=== PATIENT | female | born 1955 | race Caucasian/White ===

== ENCOUNTER 2018-10-10 11:39 | Day surgery (SDC) | payer BC ==
[~2018-10-10 11:39] MED LIST: Buffered Lidocaine 1% SYRIN* 1 ML/SYRINGE INTRADERM ONE; Lactated Ringers 1000 ML Bag* 1,000 ML IV SCH
[2018-10-10] MEDS ORDERED: Famotidine IV* 10 MG/ML 2 ML (20 mg) ONE (12:21)
[2018-10-10] MEDS ORDERED: Ondansetron INJ* 2 MG/ML VIAL IV PRN (12:37)
[2018-10-10] MEDS ORDERED: DiMENhydriNATE IV* 50 MG/ML VIAL IV PUSH PRN (12:37)
[2018-10-10] MEDS ORDERED: fentaNYL* 50 MCG/ML 2 ML VIAL (100 MCG VIAL) IV PRN (12:37)
[2018-10-10] MEDS ORDERED: Acetaminophen TAB* 325 MG PO PRN (12:37)
[2018-10-10] MEDS ORDERED: diPHENhydraMINE IV* 50 MG/ML 1 ml VIAL (BENADRYL) IV PRN (12:37)
[2018-10-10] MEDS ORDERED: Levalbuterol 0.63MG/3ML NEB* UNIT OF USE INH PRN (12:37)
[2018-10-10] MEDS ORDERED: PROCHLORPERAZINE INJ 5 MG/ML 2 ML VIAL IV PRN (12:37)
[2018-10-10] MEDS ORDERED: Naloxone* 0.4 MG/ML 1 ML VIAL IV PRN (12:37)
[2018-10-10] MEDS ORDERED: Propofol* 10 MG/ML 20 ML BTL ONE ×3 (13:11→13:54)
[2018-10-10] MEDS ORDERED: fentaNYL* 50 MCG/ML 2 ML VIAL (100 MCG VIAL) ONE (13:11)
[2018-10-10] MEDS ORDERED: Dexamethasone IV* 4 MG/ML 1 ML (4 MG) ONE (13:11)
[2018-10-10] MEDS ORDERED: Midazolam* 1 MG/ML 2 ML VIAL (2 MG) ONE (13:11)
[2018-10-10] MEDS ORDERED: Lidocaine 2% PF * 5 ML VIAL ONE (13:11)
[2018-10-10] MEDS ORDERED: KETAMINE HCL* 50 MG/ML 10 ML VIAL ONE (13:56)
[2018-10-10] MEDS ORDERED: OXYTOCIN* 10 UNITS/ML 1 ML VIAL ONE (13:59)
[2018-10-10 15:00] VITALS: BP 135/80
--- NOTE | 2018-10-10 21:29 | PRO ---
CC: Dr. Quintana * DATE OF PROCEDURE: 10/10/18 [facility] PROCEDURE: Colonoscopy. INDICATION: History of adenomatous polyps in the past. REFERRING PHYSICIAN: Dr. Quintana. MEDICATIONS GIVEN: Anesthesia. DESCRIPTION OF PROCEDURE: After the colonoscopy procedure, including the risks , benefits and alternatives, not limited to perforation, surgery, and/or were explained to Ms. Mcdaniels, written consent was then obtained. IV medication was given, and a rectal exam was performed. IV sedation was provided by anesthesia services. An Olympus pediatric colonoscope was then inserted into the patient's rectum and advanced very carefully through the entirety of the colon and into the cecal base. Careful and thorough inspection within the cecal base did not reveal any abnormalities. The quality of the preparation was fair. The scope was then withdrawn in a very careful manner over the next 10 minutes through the remainder of the colon. Three colorectal polyps were seen; two at 55 cm from the anal verge, one removed with jumbo biopsy forceps, the other removed with snare polypectomy; and then one at 15 cm from the anal verge, removed with snare cautery polypectomy. Adequate hemostasis was achieved with each and specimens were retrieved. In the rectum, a retroflexion maneuver was performed; it was unremarkable. The scope was withdrawn from the patient. She tolerated the procedure well, was returned to recovery room in stable condition. IMPRESSION: 1. Complete colonoscopy into the cecum with snare polypectomy and biopsy polypectomy. 2. Three colorectal polyps, status post snare cautery polypectomy of rectal polyp, status post cold snare polypectomy and biopsy polypectomy of transverse colon polyps. 3. I will follow up on the polyps. She should have a repeat colonoscopy in 5 years from now. [id number]/[facility] #: [id number] [facility]
== END 2018-10-10 15:37 | disposition home or self-care (01) ==
LOC: OR 11:39
PROVIDERS: ATTEND Internal Medicine Gastroenterology
DX: Z09 Encounter for follow-up examination after completed treatment for conditions other than malignant neoplasm (principal); Z86.010 Personal history of colon polyps; D12.7 Benign neoplasm of rectosigmoid junction; D12.3 Benign neoplasm of transverse colon; J44.9 Chronic obstructive pulmonary disease, unspecified; R01.1 Cardiac murmur, unspecified; Z85.3 Personal history of malignant neoplasm of breast
CPT/HCPCS: 88305; J1100; J2250; J2590; J2704; J3010

== ENCOUNTER 2020-11-19 17:57 | Observation (INO) ==
[2020-11-19] MEDS ORDERED: methylPREDNISolone 125 mg 2 ML VIAL IV ONE (18:53)
[2020-11-19] MEDS ORDERED: Albuterol/Ipratropium NEB.SOL (2.5/0.5 MG) 3 ML NEB.SOLN INH ONE (18:53)
[2020-11-19 19:48] LABS: ABS Lymphocytes 0.7 10^3/ul (1.0-4.8); ABS Monocytes 1.2 10^3/ul (0-0.8); ABS Neutrophils 15.5 10^3/ul (1.5-7.7); Eosinophil % 0.1 %; Hematocrit 44 % (35-47); Mean Corpuscular HGB Conc 34 g/dL (31-36); Mean Corpuscular Hemoglobin 31 pg (27-31); Mean Corpuscular Volume 91 fL (80-97); Platelet Count 265 10^3/uL (150-450); Red Blood Count 4.87 10^6 /uL (3.70-4.87); Red Cell Distribution Width 14 % (10-15); White Blood Count 17.5 10^3/uL (3.5-10.8)
[2020-11-19 20:07] LABS: Albumin 4.1 g/dL (3.2-5.2); Albumin/Globulin Ratio 1.4 (1-3); Calcium 9.2 mg/dL (8.6-10.3); EGFR African American 95.3 (>60); EGFR Non-African American 78.8 (>60); Globulin 2.9 g/dL (2-4); Potassium 4.2 mmol/L (3.5-5.0); Total Bilirubin 0.6 mg/dL (0.2-1.0)
[2020-11-19] MEDS ORDERED: Ondansetron 4 mg VIAL 2 MG/ML 2 ml VIAL IV ONE (20:55)
[2020-11-19] MEDS ORDERED: cefTRIAXone 1 GM/50 ML PREMIX.BAG IV ONE (23:00)
[2020-11-19] MEDS ORDERED: Enoxaparin 40 MG/0.4 ML SYR SUBCUT SCH (23:00)
[2020-11-19] MEDS ORDERED: Azithromycin 500 mg/250 ml NS 500 MG/250 ML BAG IVPB SCH (23:00)
[2020-11-19 23:31] LABS: C Reactive Protein 136.73 mg/L (<8.01)
[2020-11-20] MEDS: cefTRIAXone 1 gm/50 mL NS BAG 1 GM/50 ML BAG IVPB SCH (01:49)
[2020-11-20] MEDS: Albuterol/Ipratropium NEB.SOL (2.5/0.5 MG) 3 ML NEB.SOLN INH SCH ×4 (02:03→19:08)
[2020-11-20 08:32] LABS: ABS Lymphocytes 0.4 10^3/ul (1.0-4.8); ABS Monocytes 0.3 10^3/ul (0-0.8); ABS Neutrophils 15.3 10^3/ul (1.5-7.7); Hematocrit 43 % (35-47); Hemoglobin 14.4 g/dL (12.0-16.0); Lymphocyte % 2.7 %; Mean Corpuscular HGB Conc 34 g/dL (31-36); Mean Corpuscular Hemoglobin 31 pg (27-31); Mean Corpuscular Volume 91 fL (80-97); Mean Platelet Volume 8.4 fL (7.4-10.4); Nucleated Red Blood Cells % 0.1; Platelet Count 262 10^3/uL (150-450); Red Blood Count 4.68 10^6 /uL (3.70-4.87); Red Cell Distribution Width 14 % (10-15)
[2020-11-20 08:45] LABS: Calcium 9.4 mg/dL (8.6-10.3); EGFR African American 92.4 (>60); EGFR Non-African American 76.4 (>60); Potassium 4.2 mmol/L (3.5-5.0)
[2020-11-20] MEDS ORDERED: NON FORMULARY MED (Tiotropium Bromide [Spiriva With Handihaler] 18 mcg capsule, w/inhalati INH SCH (09:00)
[2020-11-20] MEDS: Albuterol HFA INHALER 8 gm MDI INH PRN ×2 (12:22→18:32)
[2020-11-20] MEDS: Nicotine PATCH 21 MG/24 HR PATCH TRANSDERM SCH (12:24)
[2020-11-20 12:46] LABS: Urine Appearance Clear; Urine Bilirubin Negative (Negative); Urine Blood 1+ (Negative); Urine Color Yellow; Urine Glucose 3+(>=500 mg/dL) (Negative); Urine Ketones 1+ (Negative); Urine Nitrite Positive (Negative); Urine Protein 1+(30 mg/dL) (Negative); Urine Specific Gravity 1.024 (1.002-1.030); Urine Urobilinogen Positive (Negative)
[2020-11-20 13:11] LABS: Urine Bacteria 1+ (Absent); Urine Red Blood Cell Trace(0-2/hpf) (Absent); Urine Squamous Epithelial Cell Present (Absent); Urine White Blood Cell Trace(0-5/hpf) (Absent)
[2020-11-20] MEDS ORDERED: Enoxaparin 40 MG/0.4 ML SYR SUBCUT SCH (21:00)
[2020-11-20] MEDS ORDERED: AZITHROMYCIN 500 MG TAB PO SCH (21:00)
[2020-11-21] MEDS: Albuterol/Ipratropium NEB.SOL (2.5/0.5 MG) 3 ML NEB.SOLN INH SCH ×3 (01:06→07:09)
[2020-11-21] MEDS: cefTRIAXone 1 gm/50 mL NS BAG 1 GM/50 ML BAG IVPB SCH (01:38)
[2020-11-21 05:23] LABS: Hematocrit 37 % (35-47); Hemoglobin 12.5 g/dL (12.0-16.0); Mean Corpuscular HGB Conc 34 g/dL (31-36); Mean Corpuscular Hemoglobin 31 pg (27-31); Mean Corpuscular Volume 90 fL (80-97); Mean Platelet Volume 8.7 fL (7.4-10.4); Platelet Count 254 10^3/uL (150-450); Red Blood Count 4.09 10^6 /uL (3.70-4.87); Red Cell Distribution Width 14 % (10-15)
[2020-11-21 05:32] LABS: Calcium 8.9 mg/dL (8.6-10.3); EGFR African American 123.8 (>60); EGFR Non-African American 102.3 (>60)
[2020-11-21] MEDS: Nicotine PATCH 21 MG/24 HR PATCH TRANSDERM SCH (08:04)
[2020-11-21] MEDS ORDERED: Pneumococcal Vac 23-Polyvalent IM ONE (09:00)
[2020-11-21 11:52] VITALS: BP 136/73
[2020-11-21] MEDS: Albuterol HFA INHALER 8 gm MDI INH PRN (12:14)
== END 2020-11-21 12:25 | disposition home or self-care (01) ==
LOC: ED 17:57 → MED 17:57
PROVIDERS: ADMIT Internal Medicine; ATTEND Hospitalist

== ENCOUNTER 2021-10-12 16:00 | Observation (INO) ==
[2021-10-12 16:41] LABS: ABS Basophils 0.1 10^3/ul (0-0.2); ABS Eosinophils 0.1 10^3/ul (0-0.6); ABS Lymphocytes 1.2 10^3/ul (1.0-4.8); ABS Monocytes 0.8 10^3/ul (0-0.8); ABS Neutrophils 5.9 10^3/ul (1.5-7.7); Eosinophil % 0.7 %; Hematocrit 44 % (35-47); Hemoglobin 14.8 g/dL (12.0-16.0); Lymphocyte % 15.1 %; Mean Corpuscular HGB Conc 33 g/dL (31-36); Mean Corpuscular Hemoglobin 30 pg (27-31); Mean Corpuscular Volume 88 fL (80-97); Mean Platelet Volume 7.9 fL (7.4-10.4); Nucleated Red Blood Cells % 0.2; Platelet Count 287 10^3/uL (150-450); Red Blood Count 5.03 10^6 /uL (3.70-4.87); Red Cell Distribution Width 14 % (10-15)
[2021-10-12] MEDS ORDERED: Albuterol/Ipratropium NEB.SOL (2.5/0.5 MG) 3 ML NEB.SOLN INH ONE (17:03)
[2021-10-12 17:07] LABS: High Sens Troponin Baseline 6 pg/mL (<15)
[2021-10-12 17:21] LABS: ALT 16 U/L (7-52); Albumin 3.6 g/dL (3.2-5.2); Albumin/Globulin Ratio 1.3 (1-3); Alkaline Phosphatase 56 U/L (35-149); Blood Urea Nitrogen 23 mg/dL (6-24); CO2 Carbon Dioxide 30 mmol/L (22-32); Chloride 102 mmol/L (101-111); Globulin 2.7 g/dL (2-4); Glucose 93 mg/dL (70-100); Lipase 21 U/L (11.0-82.0); Sodium 137 mmol/L (135-145); Total Protein 6.3 g/dL (6.4-8.9); eGFR CKD-EPI 109.8 (>60)
[2021-10-12 17:25] LABS: Anion Gap 5 mmol/L (2-11)
[2021-10-12] MEDS ORDERED: Iohexol 350 (CONTRAST) 500 ML MDV IV ONE (17:33)
[2021-10-12] MEDS ORDERED: NS 0.9% 1000 ml BAG 1,000 ML IV ONE (17:52)
[2021-10-12 18:14] LABS: High Sensitivity Troponin 1 Hr 7 pg/mL (<15)
[2021-10-12] MEDS ORDERED: Morphine ORAL CONCENTRATE 5 MG/0.25 ML ORAL.SYRIN PO ONE (18:44)
[2021-10-12 19:12] LABS: Magnesium 1.8 mg/dL (1.9-2.7); Potassium Redraw 4.9 mmol/L (3.5-5.0)
[2021-10-12 19:17] LABS: Urine Appearance Cloudy; Urine Bilirubin Negative (Negative); Urine Blood Negative (Negative); Urine Color Yellow; Urine Glucose Negative (Negative); Urine Ketones Trace (Negative); Urine Nitrite Positive (Negative); Urine Protein Negative (Negative); Urine Specific Gravity 1.031 (1.002-1.030); Urine Urobilinogen Negative (Negative)
[2021-10-12 19:22] LABS: Urine Bacteria Absent (Absent); Urine Red Blood Cell 3+(>10/hpf) (Absent); Urine Squamous Epithelial Cell Present (Absent); Urine White Blood Cell Trace(0-5/hpf) (Absent)
[2021-10-12] MEDS: methylPREDNISolone SOD SUCC 40 mg/ml 1 ml VIAL IV SCH (20:06)
[2021-10-12] MEDS: Enoxaparin 40 MG/0.4 ML SYR SUBCUT SCH (20:06)
[2021-10-12 20:40] LABS: PCO2 Arterial 43 mmHg (35-45); PO2 Arterial 62 mmHg (80-100)
[2021-10-12] MEDS: Azithromycin 500 mg/250 ml NS 500 MG/250 ML BAG IVPB SCH (21:24)
[2021-10-12] MEDS: Albuterol/Ipratropium NEB.SOL (2.5/0.5 MG) 3 ML NEB.SOLN INH SCH (21:33)
[2021-10-12] MEDS: Acetylcysteine INHALATION SOL 200 MG/ML NEB.SOLN 10 ML INH SCH (21:34)
[2021-10-12] MEDS: Mometasone/Formoter 200/5 MDI INH SCH (21:35)
[2021-10-12] MEDS ORDERED: Morphine ORAL.SOLN 10 mg 2 mg/ml UDC 5 ml (10 mg) PO ONE (23:07)
[2021-10-12] MEDS ORDERED: Magnesium Sulfate 2 gm BAG 2 GM/50 ML BAG IVPB ONE (23:09)
[2021-10-13] MEDS: Albuterol/Ipratropium NEB.SOL (2.5/0.5 MG) 3 ML NEB.SOLN INH SCH ×5 (00:20→19:27)
[2021-10-13] MEDS: Acetylcysteine INHALATION SOL 200 MG/ML NEB.SOLN 10 ML INH SCH ×6 (00:21→19:26)
[2021-10-13] MEDS ORDERED: Morphine ORAL CONCENTRATE 5 MG/0.25 ML ORAL.SYRIN PO ONE (03:55)
[2021-10-13] MEDS ORDERED: Senna TAB 8.6 mg TAB PO PRN (03:58)
[2021-10-13] MEDS ORDERED: Polyethylene Glycol 3350 17 GM PACKET PO PRN (03:58)
[2021-10-13] MEDS: Albuterol HFA INHALER 8 gm MDI INH PRN (03:59)
[2021-10-13] MEDS: methylPREDNISolone SOD SUCC 40 mg/ml 1 ml VIAL IV SCH ×3 (04:41→20:44)
[2021-10-13 05:13] LABS: Hematocrit 38 % (35-47); Hemoglobin 12.6 g/dL (12.0-16.0); Mean Corpuscular HGB Conc 33 g/dL (31-36); Mean Corpuscular Hemoglobin 29 pg (27-31); Mean Corpuscular Volume 89 fL (80-97); Mean Platelet Volume 8.2 fL (7.4-10.4); Platelet Count 296 10^3/uL (150-450); Red Cell Distribution Width 14 % (10-15); White Blood Count 12.3 10^3/uL (3.5-10.8)
[2021-10-13 05:41] LABS: Calcium 8.6 mg/dL (8.6-10.3); Potassium 4.6 mmol/L (3.5-5.0); eGFR CKD-EPI 97.8 (>60)
[2021-10-13 06:21] LABS: ABS Lymphocytes 0.5 10^3/ul (1.0-4.8); ABS Monocytes 0.3 10^3/ul (0-0.8); ABS Neutrophils 11.5 10^3/ul (1.5-7.7); Eosinophil % 0.1 %; Lymphocyte % 3.8 %
[2021-10-13] MEDS: Mometasone/Formoter 200/5 MDI INH SCH ×2 (07:50→19:28)
[2021-10-13] MEDS: Morphine ORAL CONCENTRATE 5 MG/0.25 ML ORAL.SYRIN PO PRN ×3 (11:29→20:55)
[2021-10-13 11:44] LABS: Vitamin D Total 25(OH) 14.8 ng/mL (20-50)
[2021-10-13] MEDS ORDERED: NS 0.9% 1000 ml BAG 1,000 ML IV ONE (14:12)
[2021-10-13] MEDS: Cholecalciferol (VIT D3) 1,000 unit TAB PO SCH (15:27)
[2021-10-13] MEDS: Enoxaparin 40 MG/0.4 ML SYR SUBCUT SCH (20:44)
[2021-10-13] MEDS: Azithromycin 500 mg/250 ml NS 500 MG/250 ML BAG IVPB SCH (20:44)
[2021-10-14] MEDS: Acetylcysteine INHALATION SOL 200 MG/ML NEB.SOLN 10 ML INH SCH ×3 (00:06→07:47)
[2021-10-14] MEDS: Albuterol HFA INHALER 8 gm MDI INH PRN ×2 (00:06→04:04)
[2021-10-14] MEDS: Morphine ORAL CONCENTRATE 5 MG/0.25 ML ORAL.SYRIN PO PRN (01:14)
[2021-10-14] MEDS: methylPREDNISolone SOD SUCC 40 mg/ml 1 ml VIAL IV SCH (04:09)
[2021-10-14] MEDS: Mometasone/Formoter 200/5 MDI INH SCH (07:47)
[2021-10-14] MEDS: Albuterol/Ipratropium NEB.SOL (2.5/0.5 MG) 3 ML NEB.SOLN INH SCH ×2 (07:47→12:44)
[2021-10-14] MEDS: Cholecalciferol (VIT D3) 1,000 unit TAB PO SCH (07:57)
[2021-10-14 11:15] VITALS: BP 140/72
== END 2021-10-14 13:20 | disposition home or self-care (01) ==
LOC: EDHOLD 16:00 → ED 16:00 → SUATTDRO 18:59 → MED 20:01
PROVIDERS: ADMIT Internal Medicine; ATTEND Internal Medicine

== ENCOUNTER 2022-01-16 18:42 | Inpatient (IN) ==
[2022-01-16] MEDS ORDERED: Morphine 4 MG/ML VIAL (1 ml) IV ONE (19:05)
[2022-01-16 20:20] LABS: ABS Lymphocytes 0.4 10^3/ul (1.0-4.8); ABS Monocytes 0.4 10^3/ul (0-0.8); ABS Neutrophils 13.5 10^3/ul (1.5-7.7); Eosinophil % 0.2 %; Hematocrit 44 % (35-47); Hemoglobin 14.2 g/dL (12.0-16.0); Lymphocyte % 2.6 %; Mean Corpuscular HGB Conc 32 g/dL (31-36); Mean Corpuscular Hemoglobin 29 pg (27-31); Mean Corpuscular Volume 91 fL (80-97); Mean Platelet Volume 8.7 fL (7.4-10.4); Platelet Count 227 10^3/uL (150-450); Red Blood Count 4.83 10^6 /uL (3.70-4.87); Red Cell Distribution Width 14 % (10-15); White Blood Count 14.3 10^3/uL (3.5-10.8)
[2022-01-16 20:33] LABS: Activated Partial Thrombo Time 31.1 seconds (26.0-38.0); INR 0.94 (0.89-1.11)
[2022-01-16] MEDS: Morphine 4 MG/ML VIAL (1 ml) IV PRN ×2 (20:38→21:48)
[2022-01-16 21:27] LABS: Albumin 3.9 g/dL (3.2-5.2); Albumin/Globulin Ratio 1.7 (1-3); Calcium 9.4 mg/dL (8.6-10.3); Globulin 2.3 g/dL (2-4); Potassium 4.6 mmol/L (3.5-5.0); Total Bilirubin 0.4 mg/dL (0.2-1.0); Total Protein 6.2 g/dL (6.4-8.9); eGFR CKD-EPI 97.8 (>60)
[2022-01-17] MEDS: Morphine 4 MG/ML VIAL (1 ml) IV PRN ×2 (02:30→04:08)
[2022-01-17] MEDS ORDERED: Ondansetron 4 mg VIAL 2 MG/ML 2 ml VIAL IV ONE (03:44)
[2022-01-17] MEDS ORDERED: Enoxaparin 40 MG/0.4 ML SYR SUBCUT SCH (06:00)
[2022-01-17] MEDS: Acetaminophen IV 1 GM/100ML 1,000 MG/100 ML BAG IV SCH ×4 (06:13→18:30)
[2022-01-17] MEDS ORDERED: Ondansetron 4 mg VIAL 2 MG/ML 2 ml VIAL IV PRN (06:42)
[2022-01-17] MEDS ORDERED: Albuterol HFA INHALER 8 gm MDI INH PRN (06:49)
[2022-01-17] MEDS: Morphine 2 MG/ML SYRINGE IV PRN ×2 (06:55→09:46)
[2022-01-17] MEDS ORDERED: NON FORMULARY MED (Budesonide-Glycopyr-Formoterol [Breztri Aerosphere] 160-9-4.8 mcg/actua INH SCH (09:00)
[2022-01-17] MEDS: Albuterol/Ipratropium NEB.SOL (2.5/0.5 MG) 3 ML NEB.SOLN INH SCH ×2 (09:45→11:57)
[2022-01-17] MEDS: Acetylcysteine ORAL SOL 200 mg/ml 30 ml VIAL INH SCH ×3 (09:49→23:20)
[2022-01-17] MEDS: FOOD SUPPLEMT LACTOSE REDUCED PO SCH ×2 (11:22→13:20)
[2022-01-17] MEDS: Cholecalciferol (VIT D3) 1,000 unit TAB PO SCH (11:22)
[2022-01-17] MEDS: SPIRIVA Respimat (tiotropium) 2.5 mcg/inh Inhaler INH SCH (11:42)
[2022-01-17] MEDS ORDERED: NS 0.9% 1000 ml BAG 1,000 ML IV SCH (13:15)
[2022-01-17] MEDS ORDERED: Iohexol 350 (CONTRAST) 500 ML MDV IV ONE (17:14)
[2022-01-17] MEDS: Mometasone/Formoter 200/5 MDI INH SCH (19:50)
[2022-01-17] MEDS ORDERED: Naloxone 0.4 mg VIAL 0.4 mg/ml 1 ml VIAL ONE ×2 (19:53→19:59)
[2022-01-17 20:27] LABS: Venous Bicarbonate HCO3 15.7 mmol/L (24-28)
[2022-01-17] MEDS ORDERED: Morphine 2 MG/ML SYRINGE IV ONE (21:07)
[2022-01-17 22:41] LABS: Blood Urea Nitrogen 21 mg/dL (6-24); CO2 Carbon Dioxide 29 mmol/L (22-32); Calcium 8.1 mg/dL (8.6-10.3); Chloride 105 mmol/L (101-111); Glucose 83 mg/dL (70-100); Sodium 135 mmol/L (135-145)
[2022-01-17 22:54] LABS: ABS Eosinophils 0.1 10^3/ul (0-0.6); ABS Lymphocytes 0.8 10^3/ul (1.0-4.8); ABS Monocytes 0.6 10^3/ul (0-0.8); ABS Neutrophils 7.2 10^3/ul (1.5-7.7); Hematocrit 37 % (35-47); Hemoglobin 12.4 g/dL (12.0-16.0); Lymphocyte % 9.5 %; Mean Corpuscular HGB Conc 34 g/dL (31-36); Mean Corpuscular Hemoglobin 31 pg (27-31); Mean Corpuscular Volume 93 fL (80-97); Mean Platelet Volume 8.9 fL (7.4-10.4); Platelet Count 173 10^3/uL (150-450); Red Blood Count 3.98 10^6 /uL (3.70-4.87); Red Cell Distribution Width 15 % (10-15); White Blood Count 8.8 10^3/uL (3.5-10.8)
[2022-01-17 22:56] LABS: Anion Gap 1 mmol/L (2-11)
[2022-01-17 23:44] LABS: Magnesium 1.7 mg/dL (1.9-2.7); Potassium Redraw 4.8 mmol/L (3.5-5.0)
[2022-01-18] MEDS ORDERED: Magnesium Sulfate IV 3 GM in NS 0.9% 100 ml BAG 100 ML IVPB ONE (00:22)
[2022-01-18] MEDS: Acetaminophen IV 1 GM/100ML 1,000 MG/100 ML BAG IV SCH ×5 (00:24→22:48)
[2022-01-18] MEDS: Morphine 2 MG/ML SYRINGE IV PRN (03:26)
[2022-01-18 03:43] LABS: Urine Appearance Clear; Urine Color Yellow
[2022-01-18 03:44] LABS: Urine Bilirubin Negative (Negative); Urine Glucose Negative (Negative); Urine Ketones Negative (Negative)
[2022-01-18 03:45] LABS: Urine Blood Negative (Negative); Urine Nitrite Negative (Negative); Urine Protein Negative (Negative); Urine Urobilinogen 0.2 (Negative) (Negative); Urine pH 5.5 (5.0-9.0)
[2022-01-18 05:22] LABS: ABS Eosinophils 0.1 10^3/ul (0-0.6); ABS Lymphocytes 1.1 10^3/ul (1.0-4.8); ABS Monocytes 0.5 10^3/ul (0-0.8); ABS Neutrophils 5.8 10^3/ul (1.5-7.7); Eosinophil % 1.5 %; Hematocrit 36 % (35-47); Hemoglobin 12.2 g/dL (12.0-16.0); Lymphocyte % 15.2 %; Mean Corpuscular HGB Conc 34 g/dL (31-36); Mean Corpuscular Hemoglobin 31 pg (27-31); Mean Corpuscular Volume 91 fL (80-97); Mean Platelet Volume 8.8 fL (7.4-10.4); Platelet Count 175 10^3/uL (150-450); Red Blood Count 3.93 10^6 /uL (3.70-4.87); Red Cell Distribution Width 14 % (10-15); White Blood Count 7.5 10^3/uL (3.5-10.8)
[2022-01-18 05:28] LABS: Venous Bicarbonate HCO3 28.1 mmol/L (24-28)
[2022-01-18 06:21] LABS: Calcium 7.7 mg/dL (8.6-10.3); Magnesium 2.5 mg/dL (1.9-2.7); Potassium 4.2 mmol/L (3.5-5.0); eGFR CKD-EPI 103.4 (>60)
[2022-01-18] MEDS ORDERED: Bupivacaine 0.5% SDV PF 30ML VIAL ONE (07:25)
[2022-01-18 08:17] LABS: PCO2 Arterial 61 mmHg (35-45); PO2 Arterial 118 mmHg (80-100)
[2022-01-18] MEDS: Mometasone/Formoter 200/5 MDI INH SCH (08:18)
[2022-01-18] MEDS: SPIRIVA Respimat (tiotropium) 2.5 mcg/inh Inhaler INH SCH (08:18)
[2022-01-18] MEDS: Cholecalciferol (VIT D3) 1,000 unit TAB PO SCH (08:54)
[2022-01-18] MEDS: Senna TAB 8.6 mg TAB PO SCH (08:55)
[2022-01-18] MEDS ORDERED: Albuterol/Ipratropium NEB.SOL (2.5/0.5 MG) 3 ML NEB.SOLN INH PRN (10:08)
[2022-01-18] MEDS: Acetylcysteine ORAL SOL 200 mg/ml 30 ml VIAL INH SCH ×2 (10:28→17:15)
[2022-01-18] MEDS: methylPREDNISolone SOD SUCC 40 mg/ml 1 ml VIAL IV SCH ×2 (11:51→22:48)
[2022-01-18] MEDS: Albuterol/Ipratropium NEB.SOL (2.5/0.5 MG) 3 ML NEB.SOLN INH SCH ×4 (12:15→22:35)
[2022-01-18] MEDS ORDERED: Acetylcysteine INH SOL (RT) 200 MG/ML 4 ML VIAL INH PRN (15:40)
[2022-01-19] MEDS: Albuterol/Ipratropium NEB.SOL (2.5/0.5 MG) 3 ML NEB.SOLN INH SCH ×4 (02:59→20:14)
[2022-01-19 05:27] LABS: ABS Lymphocytes 0.3 10^3/ul (1.0-4.8); ABS Monocytes 0.2 10^3/ul (0-0.8); ABS Neutrophils 8.6 10^3/ul (1.5-7.7); Hematocrit 38 % (35-47); Hemoglobin 12.3 g/dL (12.0-16.0); Lymphocyte % 3.3 %; Mean Corpuscular HGB Conc 33 g/dL (31-36); Mean Corpuscular Hemoglobin 29 pg (27-31); Mean Corpuscular Volume 90 fL (80-97); Mean Platelet Volume 9.1 fL (7.4-10.4); Platelet Count 186 10^3/uL (150-450); Red Blood Count 4.21 10^6 /uL (3.70-4.87); Red Cell Distribution Width 14 % (10-15); White Blood Count 9.2 10^3/uL (3.5-10.8)
[2022-01-19 05:58] LABS: Calcium 8.2 mg/dL (8.6-10.3); Magnesium 1.9 mg/dL (1.9-2.7); Potassium 4.3 mmol/L (3.5-5.0); eGFR CKD-EPI 104.9 (>60)
[2022-01-19] MEDS: Acetaminophen IV 1 GM/100ML 1,000 MG/100 ML BAG IV SCH ×4 (06:25→23:08)
[2022-01-19] MEDS: Senna TAB 8.6 mg TAB PO SCH (09:17)
[2022-01-19] MEDS: Cholecalciferol (VIT D3) 1,000 unit TAB PO SCH (09:17)
[2022-01-19] MEDS ORDERED: Lidocaine PATCH 5% PATCH TRANSDERM ONE (10:18)
[2022-01-19] MEDS ORDERED: Magnesium Sulfate IV 1GM/100ML 1 GM/100 ML BAG IV ONE (10:26)
[2022-01-19] MEDS: methylPREDNISolone SOD SUCC 40 mg/ml 1 ml VIAL IV SCH ×2 (11:06→23:08)
[2022-01-19] MEDS: Morphine 2 MG/ML SYRINGE IV PRN ×2 (14:17→20:32)
[2022-01-19] MEDS ORDERED: Lorazepam PYXIS KEY PRN (15:15)
[2022-01-19] MEDS ORDERED: Lorazepam PYXIS KEY ONE (15:17)
[2022-01-19] MEDS ORDERED: LORazepam 2 mg VIAL 1 ml ONE (15:18)
[2022-01-19] MEDS: LORazepam 2 mg VIAL 1 ml IV PUSH PRN ×2 (15:23→20:21)
[2022-01-19] MEDS ORDERED: Propofol 10 MG/ML 20 ML BTL ONE (16:11)
[2022-01-19] MEDS ORDERED: Lidocaine 2% PF 5 ML VIAL ONE (16:12)
[2022-01-19] MEDS ORDERED: Phenylephrine IV 10 MG/ML 1 ml VIAL ONE (16:12)
[2022-01-19] MEDS ORDERED: fentaNYL 250 mcg/5 ml 50 MCG/ML 5 ml VIAL (250 MCG) ONE (16:15)
[2022-01-19] MEDS ORDERED: Rocuronium 50 mg VIAL 10 mg/ml 5 ml VIAL (50 mg) ONE ×2 (16:17→18:19)
[2022-01-19] MEDS ORDERED: ROPIVACAINE 5 MG/ML 30 ML BTL (0.5%) ONE (16:27)
[2022-01-19] MEDS ORDERED: ceFAZolin 1 GM in Dextrose 1 GM/50 ML BAG ONE (17:46)
[2022-01-19] MEDS ORDERED: Ondansetron 4 mg VIAL 2 MG/ML 2 ml VIAL ONE (18:03)
[2022-01-19] MEDS ORDERED: fentaNYL 100 mcg/2 ml 50 MCG/ML VIAL ONE (19:20)
[2022-01-19] MEDS ORDERED: Propofol 10 mg/ml 100 ML BTL 100 ML ONE (20:19)
[2022-01-19] MEDS: Propofol 10 mg/ml 100 ML BTL 100 ML IV SCH (20:20)
[2022-01-20] MEDS: Morphine 2 MG/ML SYRINGE IV PRN ×5 (00:36→23:06)
[2022-01-20] MEDS: Albuterol/Ipratropium NEB.SOL (2.5/0.5 MG) 3 ML NEB.SOLN INH SCH ×4 (00:59→19:09)
[2022-01-20] MEDS: ceFAZolin 1 GM X 3 DOSES POST-OP Q8H (AddVan) IVPB SCH ×3 (01:46→17:46)
[2022-01-20] MEDS ORDERED: Pantoprazole VIAL 40 MG VIAL IV SCH (03:00)
[2022-01-20] MEDS: LORazepam 2 mg VIAL 1 ml IV PUSH PRN (03:09)
[2022-01-20] MEDS: Chlorhexidine MOUTHWASH 0.12% 15 ML UDC TOPICAL SCH ×2 (03:14→07:18)
[2022-01-20 04:28] LABS: ABS Lymphocytes 0.4 10^3/ul (1.0-4.8); ABS Monocytes 0.8 10^3/ul (0-0.8); ABS Neutrophils 12.6 10^3/ul (1.5-7.7); Eosinophil % 0.1 %; Hematocrit 35 % (35-47); Hemoglobin 12.3 g/dL (12.0-16.0); Lymphocyte % 2.8 %; Mean Corpuscular HGB Conc 35 g/dL (31-36); Mean Corpuscular Hemoglobin 31 pg (27-31); Mean Corpuscular Volume 89 fL (80-97); Mean Platelet Volume 9.1 fL (7.4-10.4); Platelet Count 201 10^3/uL (150-450); Red Blood Count 3.95 10^6 /uL (3.70-4.87); Red Cell Distribution Width 14 % (10-15); White Blood Count 13.8 10^3/uL (3.5-10.8)
[2022-01-20 04:55] LABS: Potassium 4.5 mmol/L (3.5-5.0)
[2022-01-20] MEDS: Acetaminophen IV 1 GM/100ML 1,000 MG/100 ML BAG IV SCH ×4 (05:32→23:07)
[2022-01-20] MEDS: Propofol 10 mg/ml 100 ML BTL 100 ML IV SCH (07:19)
[2022-01-20] MEDS: Enoxaparin 30 MG/0.3 ML SYR SUBCUT SCH (09:41)
[2022-01-20] MEDS: Senna TAB 8.6 mg TAB PO SCH (09:42)
[2022-01-20] MEDS: Cholecalciferol (VIT D3) 1,000 unit TAB PO SCH (09:43)
[2022-01-20] MEDS ORDERED: Lactated Ringers 500 ml BAG 500 ML IV ONE (10:19)
[2022-01-20] MEDS: methylPREDNISolone SOD SUCC 40 mg/ml 1 ml VIAL IV SCH ×2 (10:42→23:06)
[2022-01-20] MEDS ORDERED: Enoxaparin 40 MG/0.4 ML SYR SUBCUT SCH (14:00)
[2022-01-21] MEDS: Albuterol/Ipratropium NEB.SOL (2.5/0.5 MG) 3 ML NEB.SOLN INH SCH ×3 (00:46→16:44)
[2022-01-21] MEDS: LORazepam 2 mg VIAL 1 ml IV PUSH PRN (03:43)
[2022-01-21 05:32] LABS: ABS Lymphocytes 0.3 10^3/ul (1.0-4.8); ABS Monocytes 0.6 10^3/ul (0-0.8); Hematocrit 31 % (35-47); Hemoglobin 10.2 g/dL (12.0-16.0); Lymphocyte % 3.1 %; Mean Corpuscular HGB Conc 33 g/dL (31-36); Mean Corpuscular Hemoglobin 30 pg (27-31); Mean Corpuscular Volume 90 fL (80-97); Mean Platelet Volume 8.5 fL (7.4-10.4); Platelet Count 177 10^3/uL (150-450); Red Blood Count 3.44 10^6 /uL (3.70-4.87); Red Cell Distribution Width 14 % (10-15)
[2022-01-21] MEDS: Acetaminophen IV 1 GM/100ML 1,000 MG/100 ML BAG IV SCH ×2 (05:48→12:17)
[2022-01-21 05:54] LABS: Calcium 7.1 mg/dL (8.6-10.3); Potassium 4.3 mmol/L (3.5-5.0); eGFR CKD-EPI 110.4 (>60)
[2022-01-21] MEDS: Senna TAB 8.6 mg TAB PO SCH (08:55)
[2022-01-21] MEDS: Cholecalciferol (VIT D3) 1,000 unit TAB PO SCH (08:56)
[2022-01-21] MEDS: Enoxaparin 30 MG/0.3 ML SYR SUBCUT SCH (08:56)
[2022-01-21] MEDS: Morphine 2 MG/ML SYRINGE IV PRN (10:57)
[2022-01-21] MEDS ORDERED: Morphine 2 MG/ML SYRINGE IV PRN (10:59)
[2022-01-21] MEDS: methylPREDNISolone SOD SUCC 40 mg/ml 1 ml VIAL IV SCH ×2 (12:17→21:46)
[2022-01-21] MEDS: Ondansetron 4 mg VIAL 2 MG/ML 2 ml VIAL IV PRN (14:13)
[2022-01-21] MEDS: Albuterol/Ipratropium NEB.SOL (2.5/0.5 MG) 3 ML NEB.SOLN INH PRN (16:10)
[2022-01-21] MEDS: Mometasone/Formoter 200/5 MDI INH SCH (20:41)
[2022-01-21] MEDS: Polyethylene Glycol 3350 17 GM PACKET PO SCH (20:59)
[2022-01-22 06:10] LABS: ABS Lymphocytes 0.7 10^3/ul (1.0-4.8); ABS Monocytes 0.7 10^3/ul (0-0.8); ABS Neutrophils 8.5 10^3/ul (1.5-7.7); Hematocrit 35 % (35-47); Hemoglobin 11.4 g/dL (12.0-16.0); Lymphocyte % 7.3 %; Mean Corpuscular HGB Conc 33 g/dL (31-36); Mean Corpuscular Hemoglobin 29 pg (27-31); Mean Corpuscular Volume 89 fL (80-97); Mean Platelet Volume 9.1 fL (7.4-10.4); Platelet Count 210 10^3/uL (150-450); Red Blood Count 3.91 10^6 /uL (3.70-4.87); Red Cell Distribution Width 14 % (10-15); White Blood Count 9.9 10^3/uL (3.5-10.8)
[2022-01-22 06:44] LABS: Calcium 8.7 mg/dL (8.6-10.3); Potassium 4.7 mmol/L (3.5-5.0); eGFR CKD-EPI 104.4 (>60)
[2022-01-22] MEDS: Polyethylene Glycol 3350 17 GM PACKET PO SCH ×2 (08:20→21:06)
[2022-01-22] MEDS: Cholecalciferol (VIT D3) 1,000 unit TAB PO SCH (08:20)
[2022-01-22] MEDS: Senna TAB 8.6 mg TAB PO SCH (08:20)
[2022-01-22] MEDS: Enoxaparin 30 MG/0.3 ML SYR SUBCUT SCH (08:20)
[2022-01-22] MEDS: SPIRIVA Respimat (tiotropium) 2.5 mcg/inh Inhaler INH SCH (08:35)
[2022-01-22] MEDS: Mometasone/Formoter 200/5 MDI INH SCH ×2 (08:36→19:46)
[2022-01-22] MEDS ORDERED: Lactulose 30 ml UDC PO ONE (11:10)
[2022-01-22] MEDS: methylPREDNISolone SOD SUCC 40 mg/ml 1 ml VIAL IV SCH (11:14)
[2022-01-22] MEDS: Ondansetron 4 mg VIAL 2 MG/ML 2 ml VIAL IV PRN (11:59)
[2022-01-22] MEDS ORDERED: methylPREDNISolone SOD SUCC 40 mg/ml 1 ml VIAL IV SCH (12:00)
[2022-01-23] MEDS: LORazepam 2 mg VIAL 1 ml IV PUSH PRN (00:37)
[2022-01-23 04:50] LABS: ABS Lymphocytes 1.9 10^3/ul (1.0-4.8); ABS Monocytes 0.8 10^3/ul (0-0.8); ABS Neutrophils 6.4 10^3/ul (1.5-7.7); Eosinophil % 0.2 %; Hematocrit 34 % (35-47); Hemoglobin 11.1 g/dL (12.0-16.0); Lymphocyte % 20.5 %; Mean Corpuscular HGB Conc 33 g/dL (31-36); Mean Corpuscular Hemoglobin 29 pg (27-31); Mean Corpuscular Volume 90 fL (80-97); Mean Platelet Volume 8.3 fL (7.4-10.4); Platelet Count 239 10^3/uL (150-450); Red Blood Count 3.78 10^6 /uL (3.70-4.87); Red Cell Distribution Width 14 % (10-15); White Blood Count 9.1 10^3/uL (3.5-10.8)
[2022-01-23 05:43] LABS: Calcium 8.2 mg/dL (8.6-10.3); Potassium 4.5 mmol/L (3.5-5.0); eGFR CKD-EPI 97.4 (>60)
[2022-01-23] MEDS: SPIRIVA Respimat (tiotropium) 2.5 mcg/inh Inhaler INH SCH (07:36)
[2022-01-23] MEDS: Mometasone/Formoter 200/5 MDI INH SCH ×2 (07:37→21:45)
[2022-01-23] MEDS: Enoxaparin 30 MG/0.3 ML SYR SUBCUT SCH (08:01)
[2022-01-23] MEDS: Polyethylene Glycol 3350 17 GM PACKET PO SCH ×2 (08:01→23:51)
[2022-01-23] MEDS: Senna TAB 8.6 mg TAB PO SCH (08:01)
[2022-01-23] MEDS: Cholecalciferol (VIT D3) 1,000 unit TAB PO SCH (08:02)
[2022-01-23] MEDS: methylPREDNISolone SOD SUCC 40 mg/ml 1 ml VIAL IV SCH (12:08)
[2022-01-23] MEDS ORDERED: LORazepam 2 mg VIAL 1 ml IV PUSH PRN (21:28)
[2022-01-24] MEDS: Ondansetron 4 mg VIAL 2 MG/ML 2 ml VIAL IV PRN (04:44)
[2022-01-24 06:08] LABS: ABS Eosinophils 0.1 10^3/ul (0-0.6); ABS Lymphocytes 2.1 10^3/ul (1.0-4.8); ABS Monocytes 0.8 10^3/ul (0-0.8); ABS Neutrophils 7.8 10^3/ul (1.5-7.7); Eosinophil % 0.6 %; Hematocrit 37 % (35-47); Hemoglobin 12.3 g/dL (12.0-16.0); Lymphocyte % 19.3 %; Mean Corpuscular HGB Conc 33 g/dL (31-36); Mean Corpuscular Hemoglobin 30 pg (27-31); Mean Corpuscular Volume 90 fL (80-97); Mean Platelet Volume 8.2 fL (7.4-10.4); Nucleated Red Blood Cells % 0.1; Platelet Count 311 10^3/uL (150-450); Red Blood Count 4.14 10^6 /uL (3.70-4.87); Red Cell Distribution Width 14 % (10-15); White Blood Count 10.7 10^3/uL (3.5-10.8)
[2022-01-24 06:23] LABS: Calcium 8.8 mg/dL (8.6-10.3); Potassium 4.5 mmol/L (3.5-5.0); eGFR CKD-EPI 101.5 (>60)
[2022-01-24] MEDS: Mometasone/Formoter 200/5 MDI INH SCH ×2 (06:54→19:32)
[2022-01-24] MEDS: SPIRIVA Respimat (tiotropium) 2.5 mcg/inh Inhaler INH SCH (07:38)
[2022-01-24] MEDS ORDERED: Metoclopramide 5 MG/ML VIAL (10 mg) IV SLOW PU ONE (08:05)
[2022-01-24] MEDS: Cholecalciferol (VIT D3) 1,000 unit TAB PO SCH (09:11)
[2022-01-24] MEDS: Polyethylene Glycol 3350 17 GM PACKET PO SCH ×2 (09:11→20:10)
[2022-01-24] MEDS: Senna TAB 8.6 mg TAB PO SCH (09:11)
[2022-01-24] MEDS: Enoxaparin 30 MG/0.3 ML SYR SUBCUT SCH (09:13)
[2022-01-24] MEDS ORDERED: Glycerin ADULT 2.4 gm SUPP PR PRN (11:50)
[2022-01-24] MEDS: methylPREDNISolone SOD SUCC 40 mg/ml 1 ml VIAL IV SCH (11:55)
[2022-01-25] MEDS: Albuterol/Ipratropium NEB.SOL (2.5/0.5 MG) 3 ML NEB.SOLN INH PRN ×2 (01:30→21:13)
[2022-01-25] MEDS: Mometasone/Formoter 200/5 MDI INH SCH ×2 (06:53→21:09)
[2022-01-25] MEDS: SPIRIVA Respimat (tiotropium) 2.5 mcg/inh Inhaler INH SCH ×2 (06:54→07:24)
[2022-01-25] MEDS: Polyethylene Glycol 3350 17 GM PACKET PO SCH ×2 (09:08→21:44)
[2022-01-25] MEDS: Cholecalciferol (VIT D3) 1,000 unit TAB PO SCH (09:08)
[2022-01-25] MEDS: Senna TAB 8.6 mg TAB PO SCH (09:09)
[2022-01-25] MEDS: Enoxaparin 30 MG/0.3 ML SYR SUBCUT SCH (09:10)
[2022-01-26] MEDS: Polyethylene Glycol 3350 17 GM PACKET PO SCH (08:06)
[2022-01-26] MEDS: Senna TAB 8.6 mg TAB PO SCH (08:07)
[2022-01-26] MEDS: Cholecalciferol (VIT D3) 1,000 unit TAB PO SCH (08:07)
[2022-01-26] MEDS: Mometasone/Formoter 200/5 MDI INH SCH (08:08)
[2022-01-26] MEDS: Enoxaparin 30 MG/0.3 ML SYR SUBCUT SCH (08:08)
[2022-01-26] MEDS: SPIRIVA Respimat (tiotropium) 2.5 mcg/inh Inhaler INH SCH (08:08)
[2022-01-26 11:39] VITALS: BP 127/66
== END 2022-01-26 13:20 | disposition home health service (06) | DRG 301 ==
LOC: ED 18:42 → SUATTDRO 01-17 03:49 → EDHOLD 01-17 03:49 → MED 01-17 10:29 → ICU 01-17 20:31 → SSU 01-23 21:30
PROVIDERS: ADMIT Internal Medicine; ATTEND Internal Medicine